=== PATIENT | male | born 1985 | race Caucasian/White ===

== ENCOUNTER 2018-02-27 05:30 | Emergency (ER) | payer OTHER ==
[~2018-02-27] VITALS: Ht 170.2 cm; Wt 73.5 kg
[~2018-02-27 05:30] MED LIST: CEFTIN250 MG PO; KETO10TA2 PO
[2018-02-27] MEDS ORDERED: GABAPENTIN300 MG (05:43)
[2018-02-27] MEDS ORDERED: TAMS0.4C (05:44)
== END 2018-02-27 12:07 | disposition home or self-care (01) ==
LOC: ER 05:30
DX: N20.1 Calculus of ureter (principal)

== ENCOUNTER 2018-05-23 03:51 | Emergency (ER) | payer OTHER ==
[~2018-05-23] VITALS: Ht 170.2 cm; Wt 72.6 kg
[~2018-05-23 03:51] MED LIST changes: +GABAPENTIN300 MG; +TAMS0.4C
[2018-05-23] MEDS ORDERED: KETO10TA2 PO (09:36)
== END 2018-05-23 10:54 | disposition home or self-care (01) ==
LOC: ER 03:51
DX: S80.11XA Contusion of right lower leg, initial encounter (principal); W22.8XXA Striking against or struck by other objects, initial encounter; Y93.89 Activity, other specified; Y92.89 Other specified places as the place of occurrence of the external cause; Y99.8 Other external cause status

== ENCOUNTER → 2020-06-06 | Emergency (ER) | payer OTHER ==
[~2020-06-06] VITALS: Ht 170.2 cm; Wt 74.8 kg
[~2020-06-06] MED LIST changes: +AZITHROMYCIN250 MG PO; +DOXYCYCLINE HY100 MG PO; +INTESTINEX680 M2 PO; +PEPCID AC10 MG PO
== END | disposition home or self-care (01) ==
LOC: ER 02:16
DX: B33.8 Other specified viral diseases (principal); B96.0 Mycoplasma pneumoniae [M. pneumoniae] as the cause of diseases classified elsewhere; Z03.818 Encounter for observation for suspected exposure to other biological agents ruled out